=== PATIENT | female | born 1950 | race Hispanic/Latino ===

== ENCOUNTER 2018-05-05 08:02 | Day surgery (SDC) | payer MEDICARE, OTHER ==
[2018-04-27 09:24] VITALS: BMI 26.9
[2018-05-05] MEDS ORDERED: Propofol 10 mg/ml Inj (20 ML) ONE (09:17)
[2018-05-05] MEDS ORDERED: Sodium Chloride 0.9% 1,000 ML IV SCH (10:00)
[2018-05-05 10:57] VITALS: BP 115/63; PULSE 73; RESP 18; TEMP 97.3; O2SAT 100
== END 2018-05-05 11:21 | disposition home or self-care (01) ==
LOC: ENDO 08:02
PROVIDERS: ATTEND Specialist
DX: Z12.11 Encounter for screening for malignant neoplasm of colon (principal); D12.0 Benign neoplasm of cecum; E78.00 Pure hypercholesterolemia, unspecified